=== PATIENT | female | born 1990 | race Caucasian/White ===

== ENCOUNTER 2020-03-22 09:57 | Emergency (ER) | payer BC, OTHER, SELFPAY ==
--- NOTE | 2020-03-22 10:07 | ED_ITS ---
HPI - Abdominal Pain General Chief Complaint: General Medical Stated Complaint: abd pain Time Seen by Provider: 03/22/20 10:02 Source: patient Mode of arrival: ambulatory Limitations: no limitations History of Present Illness MD elicited complaint: abdominal pain Pertinent past history: none Onset (ago): day(s) (7) Location: diffuse Severity: moderate Quality: cramping Radiation: none Migration to: no migration Exacerbating factors: eating Relieving factors: nothing Associated symptoms: nausea and other (feels weak) Related Data Previous Rx's Medication Instructions Recorded amoxicillin-pot clavulanate 1 tab PO BID 7 Days #14 tab 03/22/20 [Augmentin] ondansetron 4 mg PO Q8H PRN #20 tab 03/22/20 Allergies Allergy/AdvReac Type Severity Reaction Status Date / Time Sulfa (Sulfonamide Allergy Mild SWELLING, Unverified 12/02/19 17:46 Antibiotics) HIVES [SULFA (SULFONAMIDE ANTIBIOTICS)] Review of Systems Review of Systems Constitutional : No Weight loss, No Fever, No Chills ENT/Mouth : No sore throat, No Rhinorrhea Eyes: No Swelling, No Redness Cardiovascular : No Chest Pain, No SOB, NoEdema Respiratory : No Cough, No Sputum, No Wheezing Gastrointestinal : Positive Nausea, no Vomiting, positive Diarrhea, positive abdominal Pain, No Hematochezia, No Melena Genitourinary : No Dysuria, No Urinary Frequency, No Hematuria, No Urgency Musculoskeletal : No joint pain, No Myalgias, No Joint Swelling Skin : No Skin Lesions, No rash Neuro : pos Weakness, No Numbness, No Dizziness, No Headache Psych : No Anxiety/Panic, No Depression Heme/Lymph: No Bruising, No Lymphadenopathy Endocrine : No Polyuria, No Polydipsia All other systems reviewed and are negative. Physical Exam Vital Signs: Vital Signs: Last Vital Signs Temp 98.6 F 03/22/20 10:11 Pulse 80 03/22/20 12:15 Resp 16 03/22/20 12:15 BP 109/66 03/22/20 12:15 Pulse Ox 99 03/22/20 12:15 Body Mass Index 56.7 Appearance: Alert. Oriented X3. No acute distress. Eyes: Pupils equal, round and reactive to light. ENT: Pharynx normal. Neck: Normal inspection. Neck supple. CVS: Normal heart rate and rhythm. Pulses normal. Respiratory: No respiratory distress. Breath sounds normal. Abdomen: Soft and mild lower abdominal ttp no rebound or guarding Skin: Skin warm and dry. Normal skin color. Normal skin turgor. Extremities: No lower extremity edema. No calf ttp Neuro: Oriented X 3. No motor deficit. No sensory deficit. Course Course Course Narrative: not toxic, no WBC count, stable labs, can tolerate PO, suspect colitis - flagyl held given will trial augmentin, stable for DC MDM - Abdominal Pain MDM Narrative Medical decision making narrative: 30 yo female with hx of lupus but states she has no issues because of it and no medications here with vague symptoms of diarrhea, lower abdominal cramping, food aversion - no recent antibiotics, no sick contacts, does have a family hx of UC - at this time will need labs, IVF, IV medications, CT scan for colitis, UA, will also swab for COVID given her array of symptoms. dispo per results and findings. Lab Data Result diagrams: 03/22/20 10:30 03/22/20 10:30 Labs: Lab Results 03/22/20 03/22/20 03/22/20 Range/Units 10:30 10:30 10:30 WBC 6.5 (4.8-10.8) X10*3/uL RBC 5.20 (4.20-5.50) X10*6/uL Hgb 15.7 (12.0-16.0) g/dl Hct 47.3 H (37-47) % MCV 91.0 (80-98) fL MCH 30.2 (27.0-33.0) pg MCHC 33.2 (31.0-35.0) g/dl RDW 13.2 (11.0-16.0) % Plt Count 323 (160-400) X10*3/uL MPV 10.1 (9.4-12.3) fL Immature Gran % (Auto) 0.5 H (0.0-0.4) % Neut % (Auto) 67.8 (45-73) % Lymph % (Auto) 24.1 (20-40) % [place]eller % (Auto) 5.7 (2-11) % Eos % (Auto) 1.1 (0-4) % Baso % (Auto) 0.8 (0-2) % Lymph # (Auto) 1.6 (1.2-4.9) X10*3/uL Teller # (Auto) 0.4 (0.1-1.2) X10*3/uL Eos # (Auto) 0.1 (0.0-0.4) X10*3/uL Baso # (Auto) 0.1 (0.0-0.2) X10*3/uL Abs Immat Gran (auto) 0.03 (0.00-0.03) X10*3/uL Absolute Neuts (auto) 4.4 (2.0-8.3) X10*3/uL Absolute Nucleated RBC 0.000 (0.0-0.012) X10*3/uL Nucleated RBC % (auto) 0.0 (0.0-0.2) /100WBC Hold Blue Top SEE NOTE Sodium 141 (135-145) mmol/L Potassium 4.4 (3.3-5.1) mmol/l Chloride 104 (96-108) mmol/L Carbon Dioxide 26 (22-29) mmol/L Anion Gap 15 (12-20) BUN 12 (9-16) mg/dL Creatinine 0.74 (0.5-1.4) mg/dL Estim Creat Clear Calc 159.9 Estimated GFR > 60 Random Glucose 97 (60-115) mg/dL Calcium 9.8 (8.4-10.2) mg/dL Magnesium 2.0 (1.6-2.6) mg/dL Total Bilirubin 0.6 (0.0-1.0) mg/dL Direct Bilirubin 0.2 (0.0-0.5) mg/dL AST 23 (5-31) U/L ALT 27 (0-31) U/L Alkaline Phosphatase 73 (39-117) U/L Total Protein 8.4 H (6.5-8.0) g/dL Albumin 5.3 H (3.5-5.0) g/dL Lipase 55 (8-78) U/L Urine Color Urine Appearance Urine pH (5.0-8.0) Ur Specific [place] (1.005-1.025) Urine Protein (NEG-TRACE) MG/DL Urine Glucose (UA) (NEG) MG/DL Urine Ketones (NEG) MG/DL Urine Blood (NEG) Urine Nitrite (NEG) Ur Leukocyte Esterase (NEG) Urine RBC (0) /HPF Urine WBC (0-4) /HPF Ur Squamous Epith Cells /LPF Urine Bacteria /LPF Urine Test (NEGATIVE) Coronavirus (PCR) (Negative) Influenza Type A (PCR) (Negative) Influenza Type B (PCR) (Negative) RSV RNA Qual (PCR) (Negative) 03/22/20 03/22/20 Range/Units 10:30 10:37 WBC (4.8-10.8) X10*3/uL RBC (4.20-5.50) X10*6/uL Hgb (12.0-16.0) g/dl Hct (37-47) % MCV (80-98) fL MCH (27.0-33.0) pg MCHC (31.0-35.0) g/dl RDW (11.0-16.0) % Plt Count (160-400) X10*3/uL MPV (9.4-12.3) fL Immature Gran % (Auto) (0.0-0.4) % Neut % (Auto) (45-73) % Lymph % (Auto) (20-40) % [place] % (Auto) (2-11) % Eos % (Auto) (0-4) % Baso % (Auto) (0-2) % Lymph # (Auto) (1.2-4.9) X10*3/uL Teller # (Auto) (0.1-1.2) X10*3/uL Eos # (Auto) (0.0-0.4) X10*3/uL Baso # (Auto) (0.0-0.2) X10*3/uL Abs Immat Gran (auto) (0.00-0.03) X10*3/uL Absolute Neuts (auto) (2.0-8.3) X10*3/uL Absolute Nucleated RBC (0.0-0.012) X10*3/uL Nucleated RBC % (auto) (0.0-0.2) /100WBC Hold Blue Top Sodium (135-145) mmol/L Potassium (3.3-5.1) mmol/l Chloride (96-108) mmol/L Carbon Dioxide (22-29) mmol/L Anion Gap (12-20) BUN (9-16) mg/dL Creatinine (0.5-1.4) mg/dL Estim Creat Clear Calc Estimated GFR Random Glucose (60-115) mg/dL Calcium (8.4-10.2) mg/dL Magnesium (1.6-2.6) mg/dL Total Bilirubin (0.0-1.0) mg/dL Direct Bilirubin (0.0-0.5) mg/dL AST (5-31) U/L ALT (0-31) U/L Alkaline Phosphatase (39-117) U/L Total Protein (6.5-8.0) g/dL Albumin (3.5-5.0) g/dL Lipase (8-78) U/L Urine Color YELLOW Urine Appearance CLOUDY Urine pH 6.0 (5.0-8.0) Ur Specific [place] >= 1.030 H (1.005-1.025) Urine Protein NEG (NEG-TRACE) MG/DL Urine Glucose (UA) NEG (NEG) MG/DL Urine Ketones NEG (NEG) MG/DL Urine Blood 2+ H (NEG) Urine Nitrite NEG (NEG) Ur Leukocyte Esterase TRACE H (NEG) Urine RBC 5-9 H (0) /HPF Urine WBC 1-4 (0-4) /HPF Ur Squamous Epith Cells 4+ /LPF Urine Bacteria 3+ /LPF Urine Test NEGATIVE (NEGATIVE) Coronavirus (PCR) NEGATIVE (Negative) Influenza Type A (PCR) NEGATIVE (Negative) Influenza Type B (PCR) NEGATIVE (Negative) RSV RNA Qual (PCR) NEGATIVE (Negative) Discharge Plan Discharge Clinical Impression: Colitis Patient Disposition: Home, Self-Care Instructions: Colitis (ED) Additional Instructions: return to ED for any worsening symptoms or concerns avoid dairy products other than yogurt Prescriptions: New amoxicillin-pot clavulanate [Augmentin] 500-125 mg tablet 1 tab PO BID 7 Days Qty: 14 RF: 0 ondansetron 4 mg tablet,disintegrating 4 mg PO Q8H PRN (Reason: nausea and vomiting) Qty: 20 RF: 0 Referrals: Dakotah Gonzalez MD [Primary Care Provider] - 5 days [facility] Past Medical History Attestation statement: The following information was validated with the patient. Medical History (Updated 03/22/20 @ 12:36 by Juliette Almonte DO) Hernia of abdominal wall Lupus Surgical History (Updated 03/22/20 @ 10:29 by Juliette Almonte DO) H/O hernia repair Social History Social History Smoked in Last 30 Days: No Use of substances other than those prescribed or required for medical reasons: Yes Substance Use Type: Marijuana Substance Use Frequency: Occasionally Advance Directives: No Advance Directives Information Provided: No
[2020-03-22 10:11] VITALS: BP 125/86; PULSE 83; RESP 16; TEMP 37; O2SAT 98; BMI 56.7
--- NOTE | 2020-03-22 10:14 | CT_ITS ---
EXAMINATION: CT ABDOMEN AND PELVIS WITH CONTRAST CLINICAL INFORMATION: Lower abdominal cramping. Family history of ulcerative colitis. COMPARISON: None TECHNIQUE: Multidetector volumetric images were obtained from the superior aspect of the liver through the pubic symphysis following administration 85 mL of Omnipaque 350 intravenous contrast. Sagittal and coronal reformatted images were obtained on the technologist's workstation. Oral contrast: Yes This CT examination was performed using dose optimization techniques as appropriate, variously including the following: *Automated exposure control *Adjustment of mA and/or kV according to patient size (this includes techniques or standardized protocols for targeted exams where dose is matched to indication/reason for exam; i.e. extremities or head) *Use of iterative reconstruction technique DLP: 433 mGy-cm FINDINGS: LUNG BASES: There is a 3 mm calcified left lower lobe nodule axial image 31 series 4. This probably represents a calcified granuloma. The lungs are otherwise clear. LIVER, GALLBLADDER, AND BILIARY TREE: The liver is normal in size, shape, and attenuation. No focal hepatic lesion or biliary ductal dilatation is present. The gallbladder is unremarkable with no evidence of radiopaque gallstones, gallbladder wall thickening, or obvious pericholecystic inflammatory changes. PANCREAS: Unremarkable. SPLEEN: Unremarkable. ADRENAL GLANDS: Unremarkable. KIDNEYS AND URETERS: BLADDER: Unremarkable. GASTROINTESTINAL TRACT: There is diverticulosis of the colon. No evidence of diverticulitis is seen. There is question of mild wall thickening of the sigmoid colon versus changes due to underdistention. There is prominent vasculature/vasa recta adjacent to the transverse colon. Small and large bowel is otherwise unremarkable. The appendix is unremarkable. The stomach is unremarkable. ABDOMINAL WALL: There is diastasis of the rectus muscles and small supraumbilical hernia containing fat. LYMPH NODES: Normal. VASCULAR: Unremarkable. PELVIC VISCERA: There is an IUD in the uterus in satisfactory position. The uterus and adnexa are otherwise unremarkable OSSEOUS STRUCTURES: Unremarkable. CT/CT abdomen pelvis w con IMPRESSION: Diverticulosis of the colon. No evidence of diverticulitis. Question mild wall thickening/colitis of the sigmoid colon versus changes due to underdistention. IUD in the uterus in satisfactory position.
[2020-03-22] MEDS: 0.9 % Sodium Chloride 1,000 ML 999 ML IVCONT (10:35)
[2020-03-22] MEDS: Ketorolac Tromethamine 30 MG/ML VIAL IVPUSH (10:36)
[2020-03-22] MEDS: ondansetron HCL 4 MG/2 ML VIAL IVPUSH (10:36)
[2020-03-22 10:41] LABS: MANUAL DIFF FLAG NO
[2020-03-22 10:44] LABS: Glucose Urine UA NEG (NEG); Leukocyte Esterase Urine TRACE (NEG); Nitrite Urine NEG (NEG); Specific Gravity - Urine >= 1.030 (1.005-1.025); Urine Blood 2+ (NEG); Urine Ketones NEG (NEG); Urine Protein NEG (NEG-TRACE)
[2020-03-22 10:46] LABS: UPreg QC Valid YES; Urine Pregnancy NEGATIVE (NEGATIVE)
[2020-03-22 10:47] LABS: Appearance Urine CLOUDY; Color Urine YELLOW
[2020-03-22 10:50] LABS: Basophils Absolute Auto 0.1 X10*3/uL (0.0-0.2); Basophils Percent Auto 0.8 % (0-2); Eosinophils Absolute Auto 0.1 X10*3/uL (0.0-0.4); Eosinophils Percent Auto 1.1 % (0-4); Hematocrit 47.3 % (37-47); Hemoglobin 15.7 g/dl (12.0-16.0); Imm Gran Abs Auto 0.03 X10*3/uL (0.00-0.03); Imm Gran Pct Auto 0.5 % (0.0-0.4); Lymphocytes Absolute Auto 1.6 X10*3/uL (1.2-4.9); Lymphocytes Percent Auto 24.1 % (20-40); Mean Corpuscular HGB Conc 33.2 g/dl (31.0-35.0); Mean Corpuscular Hemoglobin 30.2 pg (27.0-33.0); Mean Platelet Volume 10.1 fL (9.4-12.3); Monocytes Absolute Auto 0.4 X10*3/uL (0.1-1.2); Monocytes Percent Auto 5.7 % (2-11); Neutrophils Absolute Auto 4.4 X10*3/uL (2.0-8.3); Neutrophils Percent Auto 67.8 % (45-73); Platelet Count 323 X10*3/uL (160-400); Red Cell Distribution Width 13.2 % (11.0-16.0); White Blood Count 6.5 X10*3/uL (4.8-10.8)
[2020-03-22 10:53] LABS: Bacteria Urine 3+ /LPF; Squamous Epithelial Cell Urine 4+ /LPF
[2020-03-22 11:12] LABS: Alanine Aminotransferase 27 U/L (0-31); Albumin Level 5.3 g/dL (3.5-5.0); Alkaline Phosphatase 73 U/L (39-117); Anion Gap 15 (12-20); Aspartate Amino Transferase 23 U/L (5-31); Bilirubin Direct 0.2 mg/dL (0.0-0.5); Bilirubin Total 0.6 mg/dL (0.0-1.0); Blood Urea Nitrogen 12 mg/dL (9-16); Calcium 9.8 mg/dL (8.4-10.2); Carbon Dioxide 26 mmol/L (22-29); Chloride 104 mmol/L (96-108); Creatinine Clr Calc Pharmacy 159.9; Estimated Glomerular Filt Rate > 60; Glucose Random 97 mg/dL (60-115); Lipase 55 U/L (8-78); Potassium 4.4 mmol/l (3.3-5.1); Sodium 141 mmol/L (135-145); Total Protein 8.4 g/dL (6.5-8.0)
[2020-03-22 11:56] LABS: Influenza A PCR NEGATIVE (Negative); Influenza B PCR NEGATIVE (Negative); Resp Syncy Virus RNA Qual PCR NEGATIVE (Negative); SARS COV2 PCR INHOUSE NEGATIVE (Negative)
[2020-03-22] MEDS: iohexoL 350 MG/ML 100 ML INFUS..BTL IV (12:13)
[2020-03-22 12:15] VITALS: BP 109/66; PULSE 80; RESP 16; O2SAT 99
== END 2020-03-22 13:09 | disposition home or self-care (01) ==
PROVIDERS: Emergency Provider Emergency Medicine; PCP Internal Medicine
DX: K52.9 Noninfective gastroenteritis and colitis, unspecified (principal); R10.9 Unspecified abdominal pain; Z20.828 Contact with and (suspected) exposure to other viral communicable diseases
CPT/HCPCS: 0241U; 36415; 74177; 80048; 80076; 81001; 81025; 83690; 83735; 85025; 87086; 96361; 96374; 96375; 99284; J1885; J2405; Q9967

== ENCOUNTER 2020-08-30 18:56 | Emergency (ER) | payer BC, MEDICAID, SELFPAY ==
--- NOTE | ~2020-08-30 | CT_ITS ---
EXAMINATION: CT FACIAL BONES WITH CONTRAST CLINICAL INFORMATION: Facial swelling. COMPARISON: None TECHNIQUE: Axial images through the facial bones following 60 mL Omnipaque 350 intravenous contrast. Sagittal and coronal reconstructions on the technologist's workstation were performed. This CT examination was performed using dose optimization techniques as appropriate, variously including the following: *Automated exposure control. *Adjustment of mA and/or kV according to patient size (this includes techniques or standardized protocols for targeted exams where dose is matched to indication/reason for exam; i.e. extremities or head). *Use of iterative reconstruction technique. DLP: 418 mGy-cm FINDINGS: Exam is limited due to artifact from motion. No fracture or dislocation is seen. There is soft tissue swelling over the left maxilla and mandible suggestive of cellulitis. There is question of a small focal fluid collection measuring 1 cm adjacent to the maxilla, axial image 105 series 2.. The teeth are difficult to evaluate due to motion. There are periapical lucencies adjacent to the left molars and left second premolar suggestive of infection. This may be the cause of the left face cellulitis. There is left maxillary sinusitis. This may be odontogenic as well. There is a calcification in the floor of the mouth probably representing a stone in the left mandibular duct. This measures 3 mm. The salivary glands are otherwise normal. Paranasal sinuses, mastoid air cells and middle ears are otherwise clear. The orbits are normal-appearing. The temporomandibular joints are normal-appearing. There is shotty cervical lymphadenopathy. No enlarged lymph nodes are seen. The thyroid gland is normal. Visualized intracranial structures are normal. The cervical spine is difficult to evaluate due to motion. CT/CT facial bones w con IMPRESSION: Limited exam due to motion. Soft tissue swelling over the left maxilla and mandible suggestive of cellulitis. Question small 1 cm focal fluid collection adjacent to the mandible/abscess. Source of infection is likely odontogenic related to the left upper molars and second premolar. There is left maxillary sinus which may be odontogenic in origin as well. 3 mm stone in the left submandibular duct.
[2020-08-30 19:10] VITALS: BP 123/80; PULSE 89; RESP 20; TEMP 37.1; BMI 28.3
[2020-08-30] MEDS: Ibuprofen 400 MG TABLET PO (19:19)
--- NOTE | 2020-08-30 19:43 | ED_ITS ---
HPI - Dental/Oral General Chief complaint: Dental/Oral Stated complaint: dental pain Time Seen by Provider: 08/30/20 20:54 Source: patient Mode of arrival: ambulatory Limitations: no limitations History of Present Illness HPI Narrative: A 30-year-old female presents with left-sided facial swelling from a known dental abscess. She was on Augmentin and started clindamycin today. The swelling and pain has increased and is now just below her eye. She is able to open and close her mouth however it is difficult for her to chew because the pain on the left side of the face. MD Complaint: tooth pain Teeth map: 1. Onset (ago): week(s) Duration: constant Severity: severe Severity scale (1-10): 10 Relieving factors: nothing Exacerbating factors: chewing Context: history of dental caries Associated symptoms: gum swelling Related Data Previous Rx's Medication Instructions Recorded amoxicillin-pot clavulanate 1 tab PO BID 7 Days #14 tab 03/22/20 [Augmentin] ondansetron 4 mg PO Q8H PRN #20 tab 03/22/20 Allergies Allergy/AdvReac Type Severity Reaction Status Date / Time Sulfa (Sulfonamide Allergy Mild SWELLING, Verified 08/30/20 19:09 Antibiotics) HIVES [SULFA (SULFONAMIDE ANTIBIOTICS)] Review of Systems Review of Systems: Constitutional: No Fever, No Chills ENT/Mouth: Positive mouth pain, positive left-sided facial swelling, No Ear P ain, No Hoarseness, No sore throat Eyes: No Eye Pain, No Swelling, No Redness, No Foreign Body Cardiovascular: No Chest Pain, No SOB Respiratory: No Cough, No Dyspnea Gastrointestinal: No Nausea, No Vomiting, No Diarrhea, No abdominal Pain Genitourinary: No Dysuria, No Hematuria Musculoskeletal: positive jaw pain, No Myalgias, No Joint Swelling Skin: No Skin lacerations, No rash Neuro: No Weakness, No Numbness, No Paresthesias, No Loss of Consciousness, No Dizziness, No Headache Psych: No Anxiety/Panic, No Depression Heme/Lymph: no easy bruising, no Lymphadenopathy Endocrine: No Polyuria, No Polydipsia Yes all other systems are reviewed and are negative PMFSH Past Medical History Attestation statement: The following information was validated with the patient. Source: old records reviewed Medical History Hernia of abdominal wall Lupus Surgical History H/O hernia repair Social History Social History Alcohol intake: never Smoked in Last 30 Days: No Use of substances other than those prescribed or required for medical reasons: No Substance Use Type: Marijuana Advance Directives: No Advance Directives Information Provided: Yes Patient : No Physical Exam Vital Signs: Vital Signs: Last Vital Signs Temp 98.8 F 08/30/20 19:10 Pulse 95 08/31/20 00:14 Resp 16 08/31/20 00:14 BP 130/81 08/31/20 00:14 Pulse Ox 100 08/31/20 00:14 Body Mass Index 28.3 Appearance: Alert. Oriented X3. Moderate distress. Head: Left-sided facial swelling involving the cheek and maxillary sinus, to the bridge of the nose, and right under the left orbital and palpebral fissure, no visible area of fluctuance the buccal aspect, Normocephalic. Atraumatic. No Aguilar signs noted. No raccoon eyes noted Eyes: PERRLA. EOMI. Conjunctiva and sclera normal. Eyelids normal. ENT: TM's Normal. Pharynx normal. Uvula midline. Moist mucous membranes. No trismus noted. No drooling noted. No muffled voice noted. Neck: Normal inspection. Neck supple. No adenopathy. Thyroid Normal. No meningeal signs. No neck mass noted. CVS: Normal heart rate and rhythm. Heart sound normal. No murmurs noted. Pulses equal to all extremities. Respiratory: No respiratory distress. Painless inspiration. Breath sounds normal. No wheezes/rales/rhonchi noted. Chest nontender. No accessory muscle usage noted or decreased air movement noted. Abdomen: Soft and nontender. Bowel sounds normal in all 4 quadrants. No distention noted. No organomegaly noted. No visible injury noted. Back: No CVA tenderness. Full range of motion noted. Skin: Skin warm and dry. Normal skin color. Normal skin turgor. No rashes/lesions/lacerations noted. Extremities: No lower extremity edema. Extremities exhibit normal range of motion. Extremities nontender. Neuro: cranial nerves 2-12 intact, no focal neural deficits, strength 5/5 to all extremities, No motor deficit. No sensory deficit. Course Course Course Narrative: 30-year-old female presents with dental abscess that has progressed to facial cellulitis. She was on Augmentin, then given clindamycin today. She presented to the emergency department because the swelling and pain has increased. Order for CT scan facial bones. CT scan indicates facial cellulitis with abscess. This abscess is too deep for me to drain, I did discuss this case with our hospitalist, who declined this patient for admission because we do not have maxillofacial oral surgeon this facility. call out to [facility]. [facility] is not accepting any patients at this time 10:36 p.m.. 10:48 p.m. discussion with [facility], [facility] is not accepting maxillofacial surgery patient is at this time. 10:54 p.m. discussion with [facility], accepting physician is Dr. Peralta, patient will be transported to the emergency department. Patient was given some Zosyn 4.5 g and Ativan 1 mg for anxiety. She does understand the need for transfer. Consultations Consultation #1: Tye Time: 22:30 MDM - Dental/Oral Differential Diagnosis Differential diagnosis: Likely gingival abscess, dental caries, toothache and dental abscess Medical Records Attestation: I reviewed the patient's medical records. Lab Data Attestation: I reviewed the patient's lab results. Result diagrams: 08/30/20 20:46 08/30/20 20:46 Labs: Lab Results 08/30/20 08/30/20 08/30/20 Range/Units 20:46 20:46 20:46 WBC 9.8 (4.8-10.8) X10*3/uL RBC 4.62 (4.20-5.50) X10*6/uL Hgb 14.2 (12.0-16.0) g/dl Hct 42.2 (37-47) % MCV 91.3 (80-98) fL MCH 30.7 (27.0-33.0) pg MCHC 33.6 (31.0-35.0) g/dl RDW 12.5 (11.0-16.0) % Plt Count 264 (160-400) X10*3/uL MPV 10.4 (9.4-12.3) fL Immature Gran % (Auto) 0.4 (0.0-0.4) % Neut % (Auto) 73.7 H (45-73) % Lymph % (Auto) 17.8 L (20-40) % [place] % (Auto) 7.1 (2-11) % Eos % (Auto) 0.6 (0-4) % Baso % (Auto) 0.4 (0-2) % Lymph # (Auto) 1.8 (1.2-4.9) X10*3/uL [place] # (Auto) 0.7 (0.1-1.2) X10*3/uL Eos # (Auto) 0.1 (0.0-0.4) X10*3/uL Baso # (Auto) 0.0 (0.0-0.2) X10*3/uL Abs Immat Gran (auto) 0.04 H (0.00-0.03) X10*3/uL Absolute Neuts (auto) 7.3 (2.0-8.3) X10*3/uL Absolute Nucleated RBC 0.000 (0.0-0.012) X10*3/uL Nucleated RBC % (auto) 0.0 (0.0-0.2) /100WBC Sodium 138 (135-145) mmol/L Potassium 4.0 (3.3-5.1) mmol/L Chloride 102 (96-108) mmol/L Carbon Dioxide 28 (22-29) mmol/L Anion Gap 12 (12-20) BUN 11 (9-16) mg/dL Creatinine 0.74 (0.5-1.4) mg/dL Estim Creat Clear Calc 104.2 Estimated GFR > 60 Random Glucose 87 (60-115) mg/dL Lactic Acid 0.9 (0.5-2.0) mmol/L Calcium 9.8 (8.4-10.2) mg/dL Imaging Data Facial bone CT: Attestation: I personally reviewed and interpreted this imaging study as follows: Radiologist's impression: FINDINGS: Exam is limited due to artifact from motion. No fracture or dislocation is seen. There is soft tissue swelling over the left maxilla and mandible suggestive of cellulitis. There is question of a small focal fluid collection measuring 1 cm adjacent to the maxilla, axial image 105 series 2.. The teeth are difficult to evaluate due to motion. There are periapical lucencies adjacent to the left molars and left second premolar suggestive of infection. This may be the cause of the left face cellulitis. There is left maxillary sinusitis. This may be odontogenic as well. There is a calcification in the floor of the mouth probably representing a stone in the left mandibular duct. This measures 3 mm. The salivary glands are otherwise normal. Paranasal sinuses, mastoid air cells and middle ears are otherwise clear. The orbits are normal-appearing. The temporomandibular joints are normal-appearing. There is shotty cervical lymphadenopathy. No enlarged lymph nodes are seen. The thyroid gland is normal. Visualized intracranial structures are normal. The cervical spine is difficult to evaluate due to motion. CT/CT facial bones w con IMPRESSION: Limited exam due to motion. Soft tissue swelling over the left maxilla and mandible suggestive of cellulitis. Question small 1 cm focal fluid collection adjacent to the mandible/abscess. Source of infection is likely odontogenic related to the left upper molars and second premolar. There is left maxillary sinus which may be odontogenic in origin as well. 3 mm stone in the left submandibular duct. Critical Care Time Critical Care Time Critical Care Time: Yes Total Critical Care Time: 65 Attestation: I have personally provided critical care time exclusive of time spent on separately billable procedures. Time includes review of laboratory data, radiology results, discussion with consultants, and monitoring for potential decompensation. Interventions were performed as documented. Discharge Plan Discharge Clinical Impression: Dental abscess, Cellulitis of face Patient Disposition: [facility] Transfer Details: [facility], Dr Peralta Prescriptions: No Action amoxicillin-pot clavulanate [Augmentin] 500-125 mg tablet 1 tab PO BID 7 Days Qty: 14 RF: 0 ondansetron 4 mg tablet,disintegrating 4 mg PO Q8H PRN (Reason: nausea and vomiting) Qty: 20 RF: 0 Interventions: Acute Care Transfer Worksheet (ED) Last Done: 08/31/20 00:27 Discharge Date/Time: 08/31/20 00:29
[2020-08-30 20:51] LABS: MANUAL DIFF FLAG NO
[2020-08-30 20:54] LABS: Basophils Percent Auto 0.4 % (0-2); Eosinophils Absolute Auto 0.1 X10*3/uL (0.0-0.4); Eosinophils Percent Auto 0.6 % (0-4); Hematocrit 42.2 % (37-47); Hemoglobin 14.2 g/dl (12.0-16.0); Imm Gran Abs Auto 0.04 X10*3/uL (0.00-0.03); Imm Gran Pct Auto 0.4 % (0.0-0.4); Lymphocytes Absolute Auto 1.8 X10*3/uL (1.2-4.9); Lymphocytes Percent Auto 17.8 % (20-40); Mean Corpuscular HGB Conc 33.6 g/dl (31.0-35.0); Mean Corpuscular Hemoglobin 30.7 pg (27.0-33.0); Mean Corpuscular Volume 91.3 fL (80-98); Mean Platelet Volume 10.4 fL (9.4-12.3); Monocytes Absolute Auto 0.7 X10*3/uL (0.1-1.2); Monocytes Percent Auto 7.1 % (2-11); Neutrophils Absolute Auto 7.3 X10*3/uL (2.0-8.3); Neutrophils Percent Auto 73.7 % (45-73); Platelet Count 264 X10*3/uL (160-400); Red Blood Count 4.62 X10*6/uL (4.20-5.50); Red Cell Distribution Width 12.5 % (11.0-16.0); White Blood Count 9.8 X10*3/uL (4.8-10.8)
[2020-08-30 21:14] LABS: Lactic Acid 0.9 mmol/L (0.5-2.0)
[2020-08-30 21:18] LABS: Anion Gap 12 (12-20); Blood Urea Nitrogen 11 mg/dL (9-16); Calcium 9.8 mg/dL (8.4-10.2); Carbon Dioxide 28 mmol/L (22-29); Chloride 102 mmol/L (96-108); Creatinine Clr Calc Pharmacy 104.2; Estimated Glomerular Filt Rate > 60; Glucose Random 87 mg/dL (60-115); Sodium 138 mmol/L (135-145)
[2020-08-30] MEDS: Ketorolac Tromethamine 30 MG/ML VIAL IVPUSH (21:21)
[2020-08-30 21:25] VITALS: BP 121/81; PULSE 86; RESP 18; O2SAT 98
[2020-08-30] MEDS: iohexoL 350 MG/ML 100 ML INFUS..BTL IV (21:40)
[2020-08-30 21:49] VITALS: BP 111/74; PULSE 81; RESP 16
[2020-08-30] MEDS: Piperacillin Sodium/Tazobactam 4.5 GM in 0.9 % Sodium Chloride 100 ML IV (23:23)
[2020-08-30 23:24] VITALS: BP 117/84; PULSE 90; RESP 18; O2SAT 98
[2020-08-30] MEDS: LORazepam 2 MG/ML VIAL 1 MG IVPUSH (23:24)
--- NOTE | 2020-08-30 23:33 | PC.NURSE ---
pt at the bedside pt very anxiouse about being away from her children for the first time. pt vial for the ativan unable to scan, pt received and waiting results. pt away of the plan to transfer her to [facility] er, questions answered, allow pt to vent her feelings and concerns.
[2020-08-31 00:13] VITALS: RESP 16
[2020-08-31] MEDS: Morphine Sulfate 4 MG/ML CARTRIDGE IVPUSH (00:13)
[2020-08-31] MEDS: ondansetron HCL 4 MG/2 ML VIAL IVPUSH (00:13)
[2020-08-31 00:14] VITALS: BP 130/81; PULSE 95; RESP 16; O2SAT 100
== END 2020-08-31 00:29 | disposition short-term general hospital (02) ==
PROVIDERS: Nurse Practitioner Family; Emergency Provider Student in an Organized Health Care Education/Training Program; PCP Internal Medicine
DX: K04.7 Periapical abscess without sinus (principal); L03.211 Cellulitis of face
CPT/HCPCS: 36415; 70487; 80048; 83605; 85025; 87040; 96365; 96375; 99285; 99291; J1885; J2060; J2270; J2405; J2543; Q9967

== ENCOUNTER 2023-06-24 08:55 | Outpatient (AMB) | payer BC, SELFPAY ==
[2023-06-24 09:24] VITALS: BP 110/62; PULSE 86; TEMP 37.2; O2SAT 96; BMI 25.3
--- NOTE | 2023-06-24 09:24 | MHC.OFFWIV ---
Intake Vital Signs 06/24/23 09:24 Height 5 ft 4 in Weight 147 lb 2 oz BMI 25.3 BP 110/62 Blood Pressure Location Lt brachial Position Sitting Pulse 86 Pulse Source Pulse Oximeter Temp 98.9 F Temp Source Oral Pulse Oximetry (%) 96 Oxygen Delivery Method Room Air Intake Visit Reasons: EP sinus/ear infection/ Patient Tobacco Use Status: Never used Tobacco Patient : Yes Allergies Sulfa (Sulfonamide Antibiotics) [SULFA (SULFONAMIDE ANTIBIOTICS)] Allergy (Mild, Verified 06/24/23 09:26) SWELLING, HIVES Medication List - Last Reconciled 06/24/23 by Randall Toro MD No Known Home Meds Do you need a note to return to daycare/school/sports/work: No HPI EP sinus/ear infection/ HPI Details Patient is a 33-year-old female who is 18 weeks came in today to be evaluated for possible left ear infection and maxillary sinusitis Patient says that she has pretty bad allergies but because of she has not been taking antihistamine She has developed pressure over left sinus with yellow nasal discharge in her left ear is painful, it woke her from sleep last night There is no fever chills there is no cough but there is postnasal dripping On examination her left ear is infected, and left maxillary sinus is sore to pressure I have sent amoxicillin for the patient for 7 days For allergies I think it will be safe if she uses Flonase nasal spray. She will discuss with her OBGYN as well. [facility] Medical History Hernia of abdominal wall Lupus Surgical History H/O hernia repair Social History Alcohol intake: never Patient Tobacco Use Status: Never used Tobacco Substance Use Type: Marijuana Patient : Yes Review of Systems Const All systems reviewed & are unremarkable except as noted in HPI and below Physical Exam Vital Signs: Last Vital Signs Temp 98.9 F 06/24/23 09:24 Pulse 86 06/24/23 09:24 BP 110/62 06/24/23 09:24 Pulse Ox 96 06/24/23 09:24 Oxygen Delivery Method Room Air 06/24/23 09:24 BMI result Body Mass Index 25.3 Const General: no acute distress Orientation/consciousness: patient oriented x3 HEENT Other: Left ear tympanic membrane erythematous, left sinus O2 pressure Eyes General: appearance normal, both eyes and all related structures Resp Effort & Inspection: normal respiratory effort and able to speak in complete sentences Auscultation: clear to auscultation bilaterally Neuro General: patient oriented x3 Psych Mental Status: mental status grossly normal Assessment & Plan Assessment & Plan (1) Otitis media, left: Code(s): H66.92 - Otitis media, unspecified, left ear Qualifiers: Otitis media type: unspecified Qualified Code(s): H66.92 - Otitis media, unspecified, left ear (2) Left maxillary sinusitis: Code(s): J32.0 - Chronic maxillary sinusitis (3) with 18 completed weeks gestation: Code(s): Z3A.18 - 18 weeks gestation of Plan Patient is a 33-year-old female who is 18 weeks came in today to be evaluated for possible left ear infection and maxillary sinusitis Patient says that she has pretty bad allergies but because of she has not been taking antihistamine She has developed pressure over left sinus with yellow nasal discharge in her left ear is painful, it woke her from sleep last night There is no fever chills there is no cough but there is postnasal dripping On examination her left ear is infected, and left maxillary sinus is sore to pressure I have sent amoxicillin for the patient for 7 days For allergies I think it will be safe if she uses Flonase nasal spray. She will discuss with her OBGYN as well. Medications: New amoxicillin 875 mg PO BID 14 tabs 0RF 7 days Discontinued ondansetron Discontinued Reason: Patient no longer taking 4 mg PO Q8H PRN 20 tabs 0RF nausea and vomiting amoxicillin-pot clavulanate 500-125 mg (Augmentin) Discontinued Reason: Patient Completed Course 1 tab PO BID 7 days 14 tabs 0RF Coding Level of Care Code Est Pt Level 4 (45659) Diagnoses Left otitis media, unspecified otitis media type H66.92 Otitis media type: unspecified Left maxillary sinusitis J32.0 with 18 completed weeks gestation Z3A.18
== END 2023-06-24 10:17 | disposition home or self-care (01) ==
PROVIDERS: PCP Internal Medicine; Visit Provider Internal Medicine
DX: H66.92 Otitis media, unspecified, left ear (principal); J32.0 Chronic maxillary sinusitis; Z3A.18 18 weeks gestation of pregnancy
CPT/HCPCS: 99214